=== PATIENT | male | born 1980 | race Asian ===

== ENCOUNTER 2018-07-06 07:15 | Outpatient (CLI) | payer BC ==
[~2018-07-06 07:15] MED LIST: NO REPORTABLE MEDS
[2018-07-06 08:26] LABS: BASOPHILS % (AUTO) 0.4 % (0.0-2.0); EOSINOPHILS % (AUTO) 1.5 % (0.0-6.0); HEMATOCRIT 49 % (39-51); HEMOGLOBIN 16.3 g/dL (13.5-17.5); LYMPHOCYTES # (AUTO) 2.5 /CMM (0.8-4.8); LYMPHOCYTES % (AUTO) 41.3 % (20.0-44.0); MEAN CORPUSCULAR HGB CONC 34 g/dl (31.0-36.0); MEAN CORPUSCULAR VOLUME 91 fL (80-96); MONOCYTES # (AUTO) 0.6 /CMM (0.1-1.30); MONOCYTES % (AUTO) 9.7 % (2.0-12.0); NEUTROPHILS # (AUTO) 2.9 /CMM (1.8-8.9); NEUTROPHILS % (AUTO) 47.1 % (43.0-81.0); PLATELET COUNT (AUTO) 309 /CMM (150-450); RED BLOOD CELL COUNT(AUTO) 5.33 MIL/uL (4.5-6.0); WHITE BLOOD COUNT (AUTO) 6.1 K/uL (4.3-11.0)
[2018-07-06 08:39] LABS: ALBUMIN 4.6 g/dL (3.4-5.0); BILIRUBIN,TOTAL 0.7 mg/dL (0.2-1.0); CALCIUM, SERUM 8.8 mg/dL (8.5-10.1); TOTAL PROTEIN, SERUM 8.3 g/dL (6.4-8.2)
[2018-07-06 08:40] LABS: APPEARANCE,URINE CLEAR (CLEAR); BILIRUBIN,URINE NEGATIVE (NEGATIVE); BLOOD, URINE NEGATIVE Ery/uL (NEGATIVE); COLOR,URINE YELLOW (YELLOW); KETONES,URINE NEGATIVE (NEGATIVE); LEUKOCYTE ESTERASE ,URINE NEGATIVE (NEGATIVE); NITRITE, URINE NEGATIVE (NEGATIVE); PROTEIN,URINE NEGATIVE (NEGATIVE); UGLUCOSE NEGATIVE (NEGATIVE); UROBILINOGEN,URINE 0.2 EU/dL (0.2)
[2018-07-06 09:02] LABS: THYROID STIMULATING HORMONE 2.198 uIU/mL (0.358-3.74); URIC ACID 7.4 mg/dL (2.6-7.2)
[2018-07-07 12:08] LABS: *FOLIC ACID > 20.0 ng/mL (>3.0)
== END 2018-07-06 23:59 | disposition home or self-care (01) ==
LOC: LAB 07:15
PROVIDERS: ATTEND Legal Medicine
DX: Z00.00 Encounter for general adult medical examination without abnormal findings (principal)
CPT/HCPCS: 36415; 80053-TC; 80061-TC; 81000-TC; 82306; 82728-TC; 83540-TC; 84402-TC; 84439-TC; 84443-TC; 84550-TC; 85025-TC

== ENCOUNTER 2018-08-12 14:53 | Emergency (ER) | payer BC ==
[~2018-08-12] VITALS: Ht 170.2 cm; Wt 83.9 kg
[2018-08-12 15:01] VITALS: BP 165/93
== END 2018-08-12 15:32 | disposition home or self-care (01) ==
LOC: ER 14:57
DX: M54.6 Pain in thoracic spine (principal); F11.90 Opioid use, unspecified, uncomplicated
CPT/HCPCS: 99283; A4606

== ENCOUNTER 2019-09-11 15:14 | Emergency (ER) | payer BC, OTHER ==
[~2019-09-11] VITALS: Ht 170.2 cm; Wt 81.6 kg
--- NOTE | 2019-09-11 15:32 | NUR ---
c/o sore throat, cough with secretions, headache x 3 days, s/p exposed to postive patient 3 days ago. DENIES SOB, DIZZINESS, WEAKNESS, N/V. NO ACUTE DISTRESS NOTED. RR EVEN AND UNLABORED ON RA. ON MONITOR AND READY FOR EVAL.
--- NOTE | 2019-09-11 16:04 | NUR ---
XRAY AT BEDSIDE
[2019-09-11 16:38] VITALS: BP 90/162
--- NOTE | 2019-09-11 16:38 | NUR ---
Patient discharged to home in stable condition. Written and verbal after care instructions given. Patient verbalizes understanding of instruction.
== END 2019-09-11 16:40 | disposition home or self-care (01) ==
LOC: ER 15:15
DX: J06.9 Acute upper respiratory infection, unspecified (principal); Z20.828 Contact with and (suspected) exposure to other viral communicable diseases; Z87.11 Personal history of peptic ulcer disease
CPT/HCPCS: 99284; 0099U; 71045; 87804; 36415

== ENCOUNTER 2020-06-02 09:01 | Outpatient (CLI) | payer BC ==
[2020-06-02 10:27] LABS: BILIRUBIN,URINE NEGATIVE (NEGATIVE); BLOOD, URINE NEGATIVE Ery/uL (NEGATIVE); COLOR,URINE YELLOW (YELLOW); LEUKOCYTE ESTERASE ,URINE NEGATIVE (NEGATIVE); NITRITE, URINE NEGATIVE (NEGATIVE); PROTEIN,URINE NEGATIVE (NEGATIVE); UGLUCOSE NEGATIVE (NEGATIVE); UROBILINOGEN,URINE 0.2 EU/dL (0.2)
[2020-06-02 10:38] LABS: BASOPHILS % (AUTO) 0.8 % (0.0-2.0); HEMATOCRIT 51 % (39-51); HEMOGLOBIN 16.7 g/dL (13.5-17.5); LYMPHOCYTES % (AUTO) 38.8 % (20.0-44.0); MEAN CORPUSCULAR HGB CONC 33 g/dl (31.0-36.0); MEAN CORPUSCULAR VOLUME 92 fL (80-96); MONOCYTES # (AUTO) 0.5 /CMM (0.1-1.30); MONOCYTES % (AUTO) 9.7 % (2.0-12.0); NEUTROPHILS # (AUTO) 2.5 /CMM (1.8-8.9); NEUTROPHILS % (AUTO) 49.7 % (43.0-81.0); PLATELET COUNT (AUTO) 297 /CMM (150-450); RED BLOOD CELL COUNT(AUTO) 5.51 MIL/uL (4.5-6.0); WHITE BLOOD COUNT (AUTO) 5.1 K/uL (4.3-11.0)
[2020-06-02 10:44] LABS: ALBUMIN 4.3 g/dL (3.4-5.0); BILIRUBIN,TOTAL 0.4 mg/dL (0.2-1.0); CALCIUM, SERUM 9.2 mg/dL (8.5-10.1); CREATININE 0.9 mg/dL (0.6-1.3); POTASSIUM 3.7 mmol/L (3.5-5.1)
[2020-06-02 10:59] LABS: THYROID STIMULATING HORMONE 1.251 uIU/mL (0.358-3.74); URIC ACID 7.1 mg/dL (2.6-7.2)
[2020-06-03 07:07] LABS: FOLIC ACID > 20.0 ng/mL (>3.0)
== END 2020-06-02 23:59 | disposition home or self-care (01) ==
LOC: LAB 09:01
PROVIDERS: ATTEND Legal Medicine
DX: I10 Essential (primary) hypertension (principal); E11.9 Type 2 diabetes mellitus without complications; E55.9 Vitamin D deficiency, unspecified; D64.9 Anemia, unspecified; E03.9 Hypothyroidism, unspecified; R53.1 Weakness; Z00.00 Encounter for general adult medical examination without abnormal findings
CPT/HCPCS: 36415; 80053-TC; 80061-TC; 82306; 82728-TC; 83540-TC; 84402; 84403; 84439-TC; 84443-TC; 84550-TC; 85025-TC

== ENCOUNTER 2020-06-23 10:22 | Outpatient (CLI) | payer BC | END 2020-06-23 23:59 | disposition home or self-care (01) | LOC: MRI 10:22 | PROVIDERS: ATTEND Legal Medicine | DX: M47.812 Spondylosis without myelopathy or radiculopathy, cervical region (principal); M48.03 Spinal stenosis, cervicothoracic region; M50.23 Other cervical disc displacement, cervicothoracic region; M43.8X3 Other specified deforming dorsopathies, cervicothoracic region | CPT/HCPCS: 72141-TC ==

== ENCOUNTER 2020-11-21 10:31 | Emergency (ER) | payer BC ==
[~2020-11-21] VITALS: Ht 170.2 cm; Wt 83.9 kg
--- NOTE | 2020-11-21 10:51 | NUR ---
BIB SELF C/O ABSCESS SINCE MONDAY. PT AAOX4, VSS. RR EVEN & UNLABORED. AWAITING EVAL BY ERMD. WILL CONT TO MONITOR.
[2020-11-21] MEDS ORDERED: LIDOCAINE /MPF 1% VIAL 5 ML VIAL ONE (10:55)
--- NOTE | 2020-11-21 12:50 | NUR ---
DR. LANDRY AT FOR I&D PROCEDURE.
[2020-11-21] MEDS ORDERED: CEPH500C2 PO (12:58)
[2020-11-21] MEDS ORDERED: IBUP-1955 PO (12:58)
[2020-11-21] MEDS ORDERED: SULF1TAB48 PO (12:58)
[2020-11-21] MEDS ORDERED: ACETAMINOPHEN 325 MG TABLET PO ONE (13:00)
[2020-11-21] MEDS ORDERED: ACETAMINOPHEN 325 MG TABLET ONE (13:05)
[2020-11-21 13:12] VITALS: BP 132/87
--- NOTE | 2020-11-21 13:13 | NUR ---
Patient discharged to home in stable condition. Written and verbal after care instructions given. Patient verbalizes understanding of instruction.
== END 2020-11-21 13:13 | disposition home or self-care (01) ==
LOC: ER 10:45
DX: L02.415 Cutaneous abscess of right lower limb (principal); L03.115 Cellulitis of right lower limb
CPT/HCPCS: 10060; 76882; 99284; A6403; A6407; J3490

== ENCOUNTER 2020-11-28 12:30 | Emergency (ER) | payer BC ==
[~2020-11-28] VITALS: Ht 170.2 cm; Wt 84.8 kg
[~2020-11-28 12:30] MED LIST changes: +CEPH500C2 PO; +IBUP-1955 PO; +SULF1TAB48 PO
[2020-11-28] MEDS ORDERED: diphenhydrAMINE HCL 50 MG/ML VIAL ONE (12:58)
[2020-11-28] MEDS ORDERED: FAMOTIDINE/PF INJ 20 MG/2 ML VIAL IV ONE ×2 (12:59→13:00)
[2020-11-28] MEDS ORDERED: methylPREDNISolone SOD SUCC 125 MG/2ML VIAL ONE (12:59)
[2020-11-28] MEDS ORDERED: methylPREDNISolone SOD SUCC 125 MG/2ML VIAL IV ONE (13:00)
[2020-11-28] MEDS ORDERED: diphenhydrAMINE HCL 50 MG/ML VIAL IV ONE (13:00)
--- NOTE | 2020-11-28 13:19 | NUR ---
patient came in to the er c/o generalized rash noticed this morning s/p oral antibiotic keflex/bactrim no SOB, c/o itching, last benadryl last night. on room air, breathing evenly and unlabored. Connected to the monitor and pulse ox. kept comfortable, will continue to monitor accordingly.
[2020-11-28] MEDS ORDERED: PRED20TA PO (14:13)
[2020-11-28] MEDS ORDERED: LORA10TA7 PO (14:13)
[2020-11-28] MEDS ORDERED: predniSONE 20 MG TABLET PO ONE (15:00)
[2020-11-28] MEDS ORDERED: ALBUTEROL FS 2.5 MG/3 ML VIAL.NEB CONTNEB ONE (15:00)
[2020-11-28] MEDS ORDERED: IPRATROPIUM NEB FS 0.5 MG/2.5 ML AMPUL.NEB NEB ONE (15:00)
[2020-11-28 15:41] LABS: CALCIUM, SERUM 8.8 mg/dL (8.5-10.1); CARBON DIOXIDE 25 mmol/L (21-32); CHLORIDE 102 mmol/L (98-107); CREATININE 1.1 mg/dL (0.6-1.3); GLUCOSE 117 mg/dL (74-106); POTASSIUM 4.2 mmol/L (3.5-5.1); SODIUM SERUM 136 mmol/L (136-145); UREA NITROGEN, BLOOD 15 mg/dL (7-18)
[2020-11-28 16:17] VITALS: BP 145/88
--- NOTE | 2020-11-28 16:17 | NUR ---
Patient discharged to home in stable condition. Written and verbal after care instructions given. Patient verbalizes understanding of instruction.IV removed. Catheter intact and site benign. Pressure and 4x4 applied to site. No bleeding noted.
== END 2020-11-28 16:17 | disposition home or self-care (01) ==
LOC: ER 12:39
DX: R21 Rash and other nonspecific skin eruption (principal); T36.8X5A Adverse effect of other systemic antibiotics, initial encounter; T36.1X5A Adverse effect of cephalosporins and other beta-lactam antibiotics, initial encounter; Y92.89 Other specified places as the place of occurrence of the external cause
CPT/HCPCS: 36415; 80048; 84484; 96374; 96375; 99284; J1200; J2930; J3490

== ENCOUNTER 2021-10-28 11:29 | Outpatient (CLI) | payer BC ==
[~2021-10-28 11:29] MED LIST changes: +LORA10TA7 PO; +PRED20TA PO
[2021-10-28 12:12] LABS: BASOPHILS % (AUTO) 0.6 % (0.0-2.0); EOSINOPHILS % (AUTO) 1.6 % (0.0-6.0); HEMATOCRIT 50 % (39-51); HEMOGLOBIN 16.8 g/dL (13.5-17.5); LYMPHOCYTES # (AUTO) 3.5 K/uL (0.8-4.8); LYMPHOCYTES % (AUTO) 53.9 % (20.0-44.0); MEAN CORPUSCULAR HGB CONC 33 g/dl (31.0-36.0); MEAN CORPUSCULAR VOLUME 90 fL (80-96); MONOCYTES # (AUTO) 0.7 K/uL (0.1-1.30); MONOCYTES % (AUTO) 10.1 % (2.0-12.0); NEUTROPHILS # (AUTO) 2.2 K/uL (1.8-8.9); NEUTROPHILS % (AUTO) 33.8 % (43.0-81.0); PLATELET COUNT (AUTO) 294 K/uL (150-450); RED BLOOD CELL COUNT(AUTO) 5.61 MIL/uL (4.5-6.0); WHITE BLOOD COUNT (AUTO) 6.6 K/uL (4.3-11.0)
[2021-10-28 12:21] LABS: BILIRUBIN,URINE NEGATIVE (NEGATIVE); COLOR,URINE YELLOW (YELLOW); LEUKOCYTE ESTERASE ,URINE NEGATIVE (NEGATIVE); NITRITE, URINE NEGATIVE (NEGATIVE); PH,URINE 6.5 (5.0-8.0); PROTEIN,URINE NEGATIVE (NEGATIVE); UGLUCOSE NEGATIVE (NEGATIVE); UROBILINOGEN,URINE 0.2 EU/dL (0.2)
[2021-10-28 12:49] LABS: THYROID STIMULATING HORMONE 2.002 uIU/mL (0.358-3.74)
[2021-10-28 12:57] LABS: BILIRUBIN,TOTAL 0.6 mg/dL (0.2-1.0); CALCIUM, SERUM 8.8 mg/dL (8.5-10.1); TOTAL PROTEIN, SERUM 7.7 g/dL (6.4-8.2)
== END 2021-10-28 23:59 | disposition home or self-care (01) ==
LOC: LAB 11:29
PROVIDERS: ATTEND Legal Medicine
DX: M51.27 Other intervertebral disc displacement, lumbosacral region (principal); M48.07 Spinal stenosis, lumbosacral region; Z00.00 Encounter for general adult medical examination without abnormal findings; E11.9 Type 2 diabetes mellitus without complications; E55.9 Vitamin D deficiency, unspecified; E78.5 Hyperlipidemia, unspecified; D64.9 Anemia, unspecified; E03.9 Hypothyroidism, unspecified
CPT/HCPCS: 36415; 72148-TC; 80053-TC; 80061-TC; 82306; 82607-TC; 82728-TC; 83540-TC; 84402; 84403; 84439-TC; 84443-TC; 84550-TC; 85025-TC

== ENCOUNTER 2022-01-24 15:05 | Emergency (ER) | payer BC, OTHER ==
[~2022-01-24] VITALS: Ht 167.6 cm; Wt 81.6 kg
--- NOTE | 2022-01-24 15:30 | NUR ---
"Been having Back/Right Leg Pain Dx with Sciatica. BUT Worse now"
--- NOTE | 2022-01-24 15:39 | NUR ---
DR GONZALEZ AT BEDSIDE FOR EVAL
[2022-01-24] MEDS ORDERED: KETOROLAC TROMETHAMINE 15 MG/ML VIAL ONE (15:49)
[2022-01-24] MEDS ORDERED: CYCLOBENZAPRINE 10 MG TABLET ONE (15:50)
[2022-01-24] MEDS ORDERED: HYDROCODONE/APAP 5/325MG TABLET ONE (15:50)
[2022-01-24] MEDS ORDERED: HYDROCODONE/APAP 5/325MG TABLET PO ONE (16:00)
[2022-01-24] MEDS ORDERED: KETOROLAC TROMETHAMINE INJ 60 MG/2 ML VIAL IM ONE (16:00)
[2022-01-24] MEDS ORDERED: CYCLOBENZAPRINE 10 MG TABLET PO ONE (16:00)
[2022-01-24] MEDS ORDERED: TRAM50TA2 PO (17:03)
[2022-01-24] MEDS ORDERED: METH4TAB17 PO (17:03)
--- NOTE | 2022-01-24 17:09 | NUR ---
Patient discharged to home in stable condition. Written and verbal after care instructions given. Patient verbalizes understanding of instruction.
[2022-01-24 17:11] VITALS: BP 154/98
== END 2022-01-24 17:12 | disposition home or self-care (01) ==
LOC: ER 15:07
DX: M54.41 Lumbago with sciatica, right side (principal); M54.16 Radiculopathy, lumbar region; Z79.899 Other long term (current) drug therapy
CPT/HCPCS: 99284; 72131; 96372; J1885

== ENCOUNTER 2022-02-03 14:33 | Outpatient (CLI) | payer BC, OTHER ==
[~2022-02-03 14:33] MED LIST changes: +METH4TAB17 PO; +TRAM50TA2 PO
[2022-02-03 15:42] LABS: ALBUMIN 4.3 g/dL (3.4-5.0); BILIRUBIN,TOTAL 0.5 mg/dL (0.2-1.0); CALCIUM, SERUM 8.4 mg/dL (8.5-10.1); CREATININE 0.9 mg/dL (0.6-1.3); POTASSIUM 3.9 mmol/L (3.5-5.1); TOTAL PROTEIN, SERUM 8.2 g/dL (6.4-8.2)
== END 2022-02-03 23:59 | disposition home or self-care (01) ==
LOC: LAB 14:33
PROVIDERS: ATTEND Legal Medicine
DX: E11.9 Type 2 diabetes mellitus without complications (principal); E78.00 Pure hypercholesterolemia, unspecified
CPT/HCPCS: 36415; 80053-TC; 80061-TC; 84550-TC

== ENCOUNTER → 2022-02-11 | Outpatient (CLI) | payer BC, OTHER | END | disposition home or self-care (01) | LOC: MRI 13:32 | PROVIDERS: ATTEND Legal Medicine | DX: M48.07 Spinal stenosis, lumbosacral region (principal); G95.89 Other specified diseases of spinal cord; M51.87 Other intervertebral disc disorders, lumbosacral region; M51.26 Other intervertebral disc displacement, lumbar region; M54.30 Sciatica, unspecified side; M25.559 Pain in unspecified hip | CPT/HCPCS: 72148-TC ==